=== PATIENT | female | born 1985 | race Caucasian/White ===

== ENCOUNTER 2017-11-10 08:20 | Emergency (ER) | payer OTHER ==
[~2017-11-10] VITALS: Ht 154.9 cm; Wt 99.8 kg
[~2017-11-10 08:20] MED LIST: ALEVE220 MG PO; PEPTO-BISMOL1 TAB PO; PHENERGAN 25 MG25 M1 PO; PRILOSEC 20 MG20 MG PO; PROMS25 WY RECTAL; ZOFRAN ODT4 MG PO; ZYRTEC10 MG PO
[2017-11-10 09:01] LABS: HEMATOCRIT 42.9 % (37.0-47.0); HEMOGLOBIN 14.5 gm/dL (12.0-15.0); MCH 27.7 pg (26.0-34.0); MCHC 33.8 g/dL (28.0-37.0); RBC 5.23 mil/uL (4.20-5.00); RDW 14.2 % (10.5-14.5); WBC 8.5 thou/uL (4.0-11.0)
[2017-11-10 09:08] LABS: CALCIUM 9.4 mg/dL (8.5-10.1); CREATININE 0.9 mg/dL (0.6-1.0); POTASSIUM 4.3 mmol/L (3.5-5.1)
[2017-11-10 09:14] LABS: ALBUMIN 3.8 g/dL (3.4-5.0); TOTAL BILIRUBIN 0.2 mg/dL (<0.1-1.0)
[2017-11-10] MEDS ORDERED: OXYCODONE HCL 55 MG PO (09:15)
[2017-11-10] MEDS ORDERED: ONDANSETRON HCL4 M2 PO (09:15)
== END 2017-11-10 09:39 | disposition home or self-care (01) ==
LOC: ER 08:20
PROVIDERS: Emergency Medicine
DX: K21.9 Gastro-esophageal reflux disease without esophagitis (principal); Z88.0 Allergy status to penicillin